=== PATIENT | female | born 2005 | race Caucasian/White ===

== ENCOUNTER 2024-01-16 16:37 | Emergency (ER) | payer OTHER ==
[~2024-01-16] VITALS: Ht 157.5 cm; Wt 55.0 kg
[2024-01-16 16:45] VITALS: O2SAT 95
[2024-01-16] MEDS: KETOROLAC 15MG/ML VIAL IM ONE (22:04)
[2024-01-16] MEDS ORDERED: NAPR-1176 MT (22:09)
[2024-01-16 22:30] VITALS: BP 117/73; PULSE 85; RESP 17; TEMP 37.22520; O2SAT 98
== END 2024-01-16 22:49 | disposition home or self-care (01) ==
LOC: ER 16:37
DX: S00.03XA Contusion of scalp, initial encounter (principal); R07.89 Other chest pain; Z79.1 Long term (current) use of non-steroidal anti-inflammatories (NSAID); V89.2XXA Person injured in unspecified motor-vehicle accident, traffic, initial encounter; Y92.410 Unspecified street and highway as the place of occurrence of the external cause; Y92.89 Other specified places as the place of occurrence of the external cause; Y99.8 Other external cause status
CPT/HCPCS: 99283; 81025; 96372; J1885